=== PATIENT | male | born 1940 | race Caucasian/White ===

== ENCOUNTER 2020-10-12 14:31 | Inpatient (IN) | payer OTHER ==
[~2020-10-12] VITALS: Ht 177.8 cm; Wt 103.2 kg
== END 2020-10-13 14:55 | disposition home or self-care (01) | DRG 395 ==
LOC: ER 14:31 → MEDS 17:08 → ERHOLD 17:08 → MEDS 19:46 → ENPENDDIS 10-13 12:00 → MEDS 10-13 14:55
PROVIDERS: ADMIT Internal Medicine
PROC: 0DBK8ZZ Excision of Ascending Colon, Via Natural or Artificial Opening Endoscopic (ICD-10-PCS; principal; 2020-10-13)
DX: K64.8 Other hemorrhoids (principal); Z20.822 Contact with and (suspected) exposure to COVID-19; I10 Essential (primary) hypertension; Z87.891 Personal history of nicotine dependence; Z95.1 Presence of aortocoronary bypass graft; I25.10 Atherosclerotic heart disease of native coronary artery without angina pectoris; Z72.89 Other problems related to lifestyle; E87.5 Hyperkalemia; Z79.82 Long term (current) use of aspirin; K63.5 Polyp of colon; K57.30 Diverticulosis of large intestine without perforation or abscess without bleeding
CPT/HCPCS: 0241U; 36415; 80053; 81001; 83735; 85014; 85018; 85025; 86850; 86900; 86901; 88305; 93005; 93010; 96374; 99285-25; A9270; C9113; J2250; J2704; J7120

== ENCOUNTER 2021-03-15 14:41 | Emergency (ER) | payer OTHER ==
[~2021-03-15] VITALS: Ht 177.8 cm; Wt 97.5 kg
[~2021-03-15 14:41] MED LIST: AMLO5 PO; Aspir 8181 MG; B-1100 M1 PO; LOSARTAN POTAS100 M1 PO; SERT50 PO; ZOCOR20 MG PO
[2021-03-15] MEDS ORDERED: CHLO25 PO (15:51)
[2021-03-15] MEDS ORDERED: ONDA4 PO (15:51)
== END 2021-03-15 15:58 | disposition home or self-care (01) ==
LOC: ER 14:41
DX: F32.9 Major depressive disorder, single episode, unspecified (principal); F10.10 Alcohol abuse, uncomplicated; I10 Essential (primary) hypertension; Z87.891 Personal history of nicotine dependence; Z79.899 Other long term (current) drug therapy; Z79.82 Long term (current) use of aspirin
CPT/HCPCS: 36415; 96365; 96375; 99285-25